=== PATIENT | female | born 1985 | race Caucasian/White ===

== ENCOUNTER 2016-08-10 08:34 | Observation (INO) | payer OTHER ==
[~2016-08-10] VITALS: Ht 165.1 cm; Wt 96.2 kg
[2016-08-10 09:44] LABS: BASOPHILS % 0.3 % (0.0-2.0); HEMATOCRIT. 35.8 % (36.0-48.0); HEMOGLOBIN. 12.1 g/dL (12.0-16.0); LYMPHOCYTES % 26.7 % (20.0-50.0); MEAN CORPUSCULAR HEMOGLOBIN 29.7 pg (28.0-32.0); MEAN CORPUSCULAR HGB CONC 33.8 g/dL (31.0-37.0); MEAN CORPUSCULAR VOLUME 88.1 fL (81.0-99.0); MEAN PLATELET VOLUME 8.6 fl (7.4-10.4); MONOCYTES % 5.4 % (2.0-8.0); NEUTROPHILS % 66.6 % (40.0-76.0); PLATELET 155 x1000/uL (130-400); RED BLOOD CELL COUNT 4.07 mill/uL (4.2-5.4); RED CELL DISTRIBUTION WIDTH 15.2 % (11.6-14.6); WHITE BLOOD COUNT 7.3 x1000/uL (4.5-11.0)
[2016-08-10 09:53] LABS: D-DIMER 2.28 mg/L FEU (<0.50); INR 0.9; PARTIAL THROMBOPLASTIN TIME 22.6 sec (24.0-34.0); PROTHROMBIN TIME 9.5 sec
[2016-08-10] MEDS ORDERED: PREN-88 PO (11:08)
== END 2016-08-10 12:30 | disposition home or self-care (01) ==
LOC: L&D 08:34
PROVIDERS: ADMIT Obstetrics & Gynecology; ATTEND Obstetrics & Gynecology
DX: O26.893 Other specified pregnancy related conditions, third trimester (principal); M54.5 Low back pain; R10.30 Lower abdominal pain, unspecified; Z3A.36 36 weeks gestation of pregnancy
CPT/HCPCS: 36415; 76805; 76817; 85025; 85379; 85384; 85460; 85610; 85730; 86900; 86901; 99281; G0378